=== PATIENT | female | born 1975 | race Caucasian/White ===

== ENCOUNTER 2018-11-06 10:58 | Outpatient (CLI) | payer OTHER ==
--- NOTE | 2018-11-06 12:19 | RAD ---
TWO VIEWS CHEST: Indication: Cough. Comparison: None available. FINDINGS: There is no evidence of consolidation, effusion, or pneumothorax. Cardiac silhouette is normal in siz e. Osseous structures are intact. IMPRESSION: No focal consolidation. POS: MALACHIH
== END 2018-11-06 10:59 | disposition home or self-care (01) ==
LOC: SCSRAD 10:58
PROVIDERS: ATTEND Family Medicine
DX: R05 Cough (principal)
CPT/HCPCS: 71046

== ENCOUNTER 2021-09-26 14:29 | Outpatient (CLI) | payer BC | END 2021-09-26 14:30 | disposition home or self-care (01) | LOC: BICRAD 14:29 | PROVIDERS: ATTEND Family Medicine | DX: J40 Bronchitis, not specified as acute or chronic (principal) | CPT/HCPCS: 71046 ==

== ENCOUNTER → 2022-04-06 | Day surgery (SDC) | payer BC | END | disposition home or self-care (01) | LOC: MAMMO 07:19 | PROVIDERS: ATTEND Obstetrics & Gynecology | DX: R92.1 Mammographic calcification found on diagnostic imaging of breast (principal); Z53.8 Procedure and treatment not carried out for other reasons; Z88.2 Allergy status to sulfonamides; Z88.5 Allergy status to narcotic agent | CPT/HCPCS: 19283 ==

== ENCOUNTER 2022-08-24 12:28 | Outpatient (CLI) | payer BC ==
[2022-08-24 14:06] LABS: Hemoglobin 13.3 g/dL (12.0-15.5); Mean Corpuscular HGB CONC 34.8 g/dL (32.0-36.0); Mean Corpuscular Hemoglobin 28.4 pg (27.0-33.0); Mean Corpuscular Volume 81.6 fl (81.6-98.3); Mean Platelet Volume 9.1 fl (7.4-10.4); Platelet Count 351 10x3/uL (150-450); Red Blood Cell (RBC) Count 4.68 10x6/uL (3.90-5.03); White Blood Cell (WBC) Count 7.9 10x3/uL (3.5-10.5)
[2022-08-24 14:22] LABS: INR-International Normal Ratio 0.9; PTT 26.9 sec (22.0-33.0); Prothrombin Time 9.9 sec (9.5-12.1)
[2022-08-24 14:29] LABS: Anion Gap 18 mmol/L (10-20); BUN (Urea Nitrogen) 12 mg/dL (7.0-18.7); Calc. Creatinine Clearance 0 mL/min (70-130); Calcium 9.4 mg/dL (7.8-10.44); Carbon Dioxide 24 mmol/L (22-29); Chloride 99 mmol/L (98-107); Estimated GFR 102; Glucose 85 mg/dL (70-105); Potassium 3.8 mmol/L (3.5-5.1); Sodium 137 mmol/L (136-145)
== END 2022-08-24 12:29 | disposition home or self-care (01) ==
LOC: LABBT 12:28
PROVIDERS: ATTEND Surgery
DX: Z01.818 Encounter for other preprocedural examination (principal); M50.10 Cervical disc disorder with radiculopathy, unspecified cervical region
CPT/HCPCS: 80048; 85027; 85610; 85730; 86850; 86900; 86901; 93005; 93010

== ENCOUNTER 2022-08-24 12:30 | Inpatient (IN) | payer BC ==
[2022-08-25 13:42] VITALS: BMI 32.4
[2022-08-29] MEDS ORDERED: Midazolam HCl 2 mg/2 ml Vial ONE (11:00)
[2022-08-29] MEDS ORDERED: Scopolamine 1.5 mg/72 hour Patch ONE (11:00)
[2022-08-29 11:17] LABS: SARS-CoV-2 NAA Rapid Test Not Detected (NotDetected)
[2022-08-29] MEDS ORDERED: Thrombin 5000 UNITS/5 ML VIAL ONE (11:56)
[2022-08-29] MEDS ORDERED: fentaNYL Citrate/PF 100 MCG/2 ML SYRINGE ONE ×4 (12:46→17:25)
[2022-08-29] MEDS ORDERED: Propofol 1,000 MG/100 ML VIAL IV ONE ×2 (12:46→14:47)
[2022-08-29] MEDS ORDERED: CEFAZOLIN 2 GM VIAL ONE ×2 (13:28→18:11)
[2022-08-29] MEDS ORDERED: Sodium Chloride 0.9% 100 ML ONE ×2 (13:28→18:11)
[2022-08-29] MEDS ORDERED: Metoprolol Tartrate 5 MG/5 ML VIAL ONE (13:53)
[2022-08-29] MEDS ORDERED: PROPOFOL 200 MG/20 ML VIAL ONE (13:53)
[2022-08-29] MEDS ORDERED: Rocuronium Bromide 10 MG/ML (10ML VIAL) ONE (13:53)
[2022-08-29] MEDS ORDERED: Ondansetron PF 4 MG/2 ML Vial ONE ×2 (13:53→18:28)
[2022-08-29] MEDS ORDERED: Vecuronium 10 MG VIAL ONE (13:53)
[2022-08-29] MEDS ORDERED: NEOSTIGMINE 3 MG/3 ML SYR 3 MG/3 ML SYRINGE ONE (13:53)
[2022-08-29] MEDS ORDERED: Glycopyrrolate 0.2 MG/ML 5 ML SYRINGE ONE (13:53)
[2022-08-29] MEDS ORDERED: Dexamethasone 20 MG/5 ML VIAL ONE (13:53)
[2022-08-29] MEDS ORDERED: Propofol 500 MG/50 ML VIAL ONE (15:38)
[2022-08-29] MEDS ORDERED: Acetaminophen 325 MG TAB PO PRN (16:50)
[2022-08-29] MEDS ORDERED: HYDROcodone/Acetaminophen 7.5/325 mg Tablet PO PRN (16:50)
[2022-08-29] MEDS ORDERED: Ondansetron PF 4 MG/2 ML Vial IVP PRN (16:51)
[2022-08-29] MEDS ORDERED: Morphine 2 MG/ML VIAL SLOW IVP PRN (16:51)
[2022-08-29] MEDS ORDERED: diphenhydrAMINE 25 MG CAP PO PRN (16:51)
[2022-08-29] MEDS ORDERED: Cepastat Lozenges 1 LOZ PO PRN (16:56)
[2022-08-29] MEDS ORDERED: Chloraseptic Spray 180 ml Bottle PO PRN (16:56)
[2022-08-29] MEDS ORDERED: Morphine Sulfate 2 MG/ML SYRINGE SLOW IVP PRN (16:57)
[2022-08-29] MEDS ORDERED: Cyclobenzaprine 10 MG TAB PO PRN (16:57)
[2022-08-29] MEDS ORDERED: PACU-Morphine 4MG/ML VIAL SLOW IVP PRN (16:57)
[2022-08-29] MEDS ORDERED: HYDROmorphone 2 MG/ML VIAL SLOW IVP PRN (16:57)
[2022-08-29] MEDS ORDERED: Promethazine HCl 25 MG/ML VIAL IM PRN (16:57)
[2022-08-29] MEDS ORDERED: Fluticasone Propionate Nasal Spray 16 gm Bottle NASAL PRN (16:57)
[2022-08-29] MEDS ORDERED: Promethazine HCl 25 MG/ML VIAL IVPB PRN (16:57)
[2022-08-29] MEDS ORDERED: Ondansetron HCl/PF 4 MG/2 ML Vial IVP PRN (16:57)
[2022-08-29] MEDS ORDERED: Meperidine HCl/PF 25 MG/ML VIAL SLOW IVP PRN (16:57)
[2022-08-29] MEDS ORDERED: Loratadine 10 MG TAB PO PRN (17:53)
[2022-08-29] MEDS ORDERED: Rimegepant Sulfate [Nurtec Odt] 75 MG Tab.Rapdis PO PRN (18:02)
[2022-08-29] MEDS ORDERED: SUMAtriptan Succinate 50 MG TAB PO PRN (18:05)
[2022-08-29] MEDS ORDERED: Albuterol Sulfate 2.5 mg/3 ml Neb NEB PRN (18:06)
[2022-08-29] MEDS: CEFAZOLIN 2 GM in Sodium Chloride 0.9% 100 ML IVPB SCH (18:19)
[2022-08-29] MEDS ORDERED: HYDROmorphone 0.5 MG/0.5 ML SYRINGE ONE (18:35)
[2022-08-29] MEDS: Sodium Chloride 0.9% 1,000 ML IV SCH (20:46)
[2022-08-29] MEDS: Gabapentin 300 MG CAP PO SCH (20:46)
[2022-08-29] MEDS: Ketorolac Tromethamine 30 MG/ML VIAL IVP PRN (20:47)
[2022-08-29] MEDS: Montelukast Sodium 10 mg Tablet PO SCH (20:52)
[2022-08-29] MEDS: Floranex 1 GM Packet PO SCH (20:54)
[2022-08-29] MEDS ORDERED: oxyCODONE 5 MG TAB PO PRN (20:58)
[2022-08-29] MEDS: Fentanyl 100 MCG/2 ML VIAL SLOW IVP PRN ×2 (21:09→23:30)
[2022-08-29] MEDS: Estradiol 1 MG TAB PO SCH (21:12)
[2022-08-29] MEDS: Escitalopram Oxalate 10 mg Tablet PO SCH (21:12)
[2022-08-29] MEDS: Promethazine HCl 12.5 MG in Sodium Chloride 0.9% 50 ML IVPB PRN (23:05)
[2022-08-29] MEDS: Diazepam 5 MG TAB PO PRN (23:05)
[2022-08-29] MEDS: Polyethylene Glycol OPTH DROP 15 ML BOT EA EYE SCH (23:30)
[2022-08-29] MEDS: hydrALAZINE 20 MG/ML VIAL SLOW IVP PRN (23:51)
[2022-08-30] MEDS: Fentanyl 100 MCG/2 ML VIAL SLOW IVP PRN ×4 (01:23→21:54)
[2022-08-30] MEDS: Ketorolac Tromethamine 30 MG/ML VIAL IVP PRN (04:20)
[2022-08-30] MEDS: hydrALAZINE 20 MG/ML VIAL SLOW IVP PRN (04:24)
[2022-08-30] MEDS: Promethazine HCl 12.5 MG in Sodium Chloride 0.9% 50 ML IVPB PRN (05:21)
[2022-08-30] MEDS: CEFAZOLIN 2 GM in Sodium Chloride 0.9% 100 ML IVPB SCH ×3 (05:31→21:38)
[2022-08-30] MEDS: Levothyroxine Sodium 88 MCG TAB PO SCH (05:32)
[2022-08-30] MEDS: Diazepam 5 MG TAB PO PRN ×2 (06:08→15:03)
[2022-08-30] MEDS: HYDROcodone/Acetaminophen 7.5/325 mg Tablet PO PRN ×3 (09:33→20:10)
[2022-08-30] MEDS: Gabapentin 300 MG CAP PO SCH ×3 (09:34→20:19)
[2022-08-30] MEDS: Amlodipine 10 MG TAB PO SCH (09:35)
[2022-08-30] MEDS: Metoprolol Tartrate 25 MG TAB PO SCH (09:35)
[2022-08-30] MEDS: Hydrochlorothiazide 25 MG TAB PO SCH (09:36)
[2022-08-30] MEDS: Polyethylene Glycol OPTH DROP 15 ML BOT EA EYE SCH ×4 (09:41→20:19)
[2022-08-30] MEDS ORDERED: Dexamethasone 10 MG/ML VIAL SLOW IVP SCH (10:00)
[2022-08-30] MEDS: traMADol HCl 50 MG TAB PO PRN ×2 (11:39→17:59)
[2022-08-30] MEDS ORDERED: Scopolamine 1.5 mg/72 hour Patch TD SCH (12:00)
[2022-08-30] MEDS: Dexamethasone 4 MG TAB PO SCH ×2 (16:09→21:38)
[2022-08-30] MEDS: Sodium Chloride 0.9% 1,000 ML IV SCH ×2 (19:19→21:37)
[2022-08-30] MEDS: Floranex 1 GM Packet PO SCH (20:19)
[2022-08-30] MEDS: Escitalopram Oxalate 10 mg Tablet PO SCH (20:19)
[2022-08-30] MEDS: Estradiol 1 MG TAB PO SCH (20:19)
[2022-08-30] MEDS: Montelukast Sodium 10 mg Tablet PO SCH (20:19)
[2022-08-31] MEDS: Dexamethasone 4 MG TAB PO SCH ×2 (05:34→09:20)
[2022-08-31] MEDS: CEFAZOLIN 2 GM in Sodium Chloride 0.9% 100 ML IVPB SCH (05:34)
[2022-08-31] MEDS: Levothyroxine Sodium 88 MCG TAB PO SCH (05:34)
[2022-08-31] MEDS: HYDROcodone/Acetaminophen 7.5/325 mg Tablet PO PRN ×2 (05:34→11:49)
[2022-08-31] MEDS: Gabapentin 300 MG CAP PO SCH (09:19)
[2022-08-31] MEDS: Amlodipine 10 MG TAB PO SCH (09:19)
[2022-08-31] MEDS: Hydrochlorothiazide 25 MG TAB PO SCH (09:20)
[2022-08-31] MEDS: Metoprolol Tartrate 25 MG TAB PO SCH (09:20)
[2022-08-31] MEDS: traMADol HCl 50 MG TAB PO PRN (09:21)
[2022-08-31] MEDS: Sodium Chloride 0.9% 1,000 ML IV SCH (09:23)
[2022-08-31] MEDS: Polyethylene Glycol OPTH DROP 15 ML BOT EA EYE SCH (09:25)
[2022-08-31 12:28] VITALS: BP 147/95; TEMP 97.9
[2022-08-31] MEDS: TESTOSTERONE TD SCH (13:16)
[2022-08-31] MEDS ORDERED: Dexamethasone 1 MG TAB PO SCH (16:00)
== END 2022-08-31 12:15 | disposition home or self-care (01) | DRG 473 ==
LOC: SURG A 08-29 09:51
PROVIDERS: ADMIT Surgery; ATTEND Surgery
PROC: 0RG2070 Fusion of 2 or more Cervical Vertebral Joints with Autologous Tissue Substitute, Anterior Approach, Anterior Column, Open Approach (ICD-10-PCS; principal; 2022-08-29)
PROC: 0RB30ZZ Excision of Cervical Vertebral Disc, Open Approach (ICD-10-PCS; 2022-08-29)
PROC: 01N10ZZ Release Cervical Nerve, Open Approach (ICD-10-PCS; 2022-08-29)
DX: M48.02 Spinal stenosis, cervical region (principal); M54.12 Radiculopathy, cervical region; Z20.822 Contact with and (suspected) exposure to COVID-19; M40.202 Unspecified kyphosis, cervical region; E03.9 Hypothyroidism, unspecified; I10 Essential (primary) hypertension; Z88.2 Allergy status to sulfonamides; Z88.5 Allergy status to narcotic agent; Z98.890 Other specified postprocedural states; Z79.890 Hormone replacement therapy; Z79.899 Other long term (current) drug therapy; Z88.8 Allergy status to other drugs, medicaments and biological substances; Z90.710 Acquired absence of both cervix and uterus
CPT/HCPCS: 76000; C1713; C1768; J0360; J0690; J1100; J1170; J1885; J2250; J2405; J2550; J2704; J3010; J3490; J7050; J8540; U0002